=== PATIENT | female | born 1990 | race Two or more races ===

== ENCOUNTER 2020-04-19 16:52 | Emergency (ER) | payer OTHER ==
--- NOTE | 2020-04-19 17:23 | ED Physician Documentation ---
PD HPI LOWER EXT INJURY - Stated complaint Stated Complaint: R FOOT INJ - Chief complaint Chief Complaint: Trauma Ext - History obtained from History obtained from: Patient - History of Present Illness PD HPI LOW EXT INJURY LOCATION: Right, Ankle, Foot Type of injury: Fall, Twist (while hiking today) Timing - onset: How many hours ago (2) Timing - duration: Hours (2) Timing - details: Gradual onset Pain level max: 7 Pain level now: 5 Improved by: Rest, Ice, Immobilization Worsened by: Moving, Palpating Associated symptoms: Swelling. No: Weakness, Numbness, Tingling, Discolored Contributing factors: No: Anticoagulated Recently seen: Not recently seen - Additional information Additional information: twisted R foot and ankle on tree root, now with pain. Patient is not , breast-feeding or trying to become . Review of Systems Constitutional: denies: Fever : denies: Now EGA Musculoskeletal: denies: Neck pain, Back pain Neurologic: denies: Head injury PD PAST MEDICAL HISTORY - Past Medical History Past Medical History: No - Past Surgical History Past Surgical History: No - Present Medications Home Medications: Ambulatory Orders Medication Instructions Recorded Confirmed Ibuprofen [Motrin] 800 mg PO Q8H PRN #30 tablet 04/19/20 - Allergies Allergies/Adverse Reactions: Allergies Allergy/AdvReac Type Severity Reaction Status Date / Time No Known Drug Allergies Allergy Verified 04/19/20 16:59 - Living Situation Living Situation: reports: With family Living Arrangement: reports: At home - Social History Does the pt smoke?: No Smoking Status: Never smoker PD ED PE NORMAL - Vitals Vital signs reviewed: Yes - General General: Alert and oriented X 3, No acute distress - HEENT HEENT: Moist mucous membranes - Neck Neck: Supple, no meningeal sign - Derm Derm: Warm and dry - Extremities Extremities: Other (Right ankle and foot - Tender to palpation over the lateral malleolus and the base of the fifth metatarsal. Mild swelling. No ecchymosis. Neurovascular intact. Otherwise normal examination of the foot and ankle.) - Neuro Neuro: Alert and oriented X 3 Results - Vitals Vitals: Vital Signs - 24 hr 04/19/20 04/19/20 17:00 18:25 Temperature 37.3 C 37.0 C Heart Rate 81 73 Respiratory 18 18 Rate Blood Pressure 117/67 120/74 O2 Saturation 98 100 Oxygen O2 Source Room air - Rads (name of study) Right foot x-ray Radiology: Prelim report reviewed, EMP read contemporaneously, See rad report (Fracture at the base of the fifth metatarsal) Right ankle x-ray Radiology: Prelim report reviewed, EMP read contemporaneously, See rad report (Fracture at the base of the fifth metatarsal) Procedures - Splint (location) R lower extremity Splint applied by: Physician, Tech Type of splint: Fiberglass, Short leg, Posterior Other: Patient tolerated well, No complications, Neurovascular intact, Crutches provided PD MEDICAL DECISION MAKING - ED course Complexity details: reviewed results, re-evaluated patient, considered differential, d/w patient ED course: Patient with a fracture at the base of the fifth metatarsal, placed in a short leg posterior splint and given crutches. Neurovascularly intact. [place]. Patient counseled reg arding signs and symptoms for which I believe and urgent re-evaluation would be necessary. Patient with good understanding of and agreement to plan and is comfortable going home at this time This document was made in part using voice recognition software. While efforts are made to proofread this document, sound alike and grammatical errors may occur. Departure - Departure Disposition: 01 Home, Self Care Clinical Impression: Fracture of base of fifth metatarsal bone Qualifiers: Encounter type: initial encounter Fracture type: closed Laterality: right Qualified Code(s): S92.351A - Displaced fracture of fifth metatarsal bone, right foot, initial encounter for closed fracture Condition: Good Instructions: ED Fx Foot Follow-Up: Your,doctor in 1 week [Other] Prescriptions: Ibuprofen [Motrin] 800 mg PO Q8H PRN #30 tablet PRN Reason: PAIN &/OR FEVER Comments: These fractures require orthopedic follow-up to ensure proper healing. [place] 1 [place] 2 [place]. You are to be nonweightbearing until that time. Return if you worsen. Forms: Activity restrictions Discharge Date/Time: 04/19/20 18:46
[2020-04-19] MEDS ORDERED: IBUPROFEN 800 MG TABLET PO STA (17:43)
--- NOTE | 2020-04-19 17:45 | XRAY Report ---
PROCEDURE: Foot 3 View RT INDICATIONS: injury TECHNIQUE: 3 views of the foot were acquired. COMPARISON: X-ray ankle 04/19/2020 FINDINGS: Bones: There is a nondisplaced fracture at the base of the fifth metatarsal. No suspicious bony lesio ns. Soft tissues: No tibiotalar joint effusion. Achilles tendon appears normal. IMPRESSION: Nondisplaced fifth metatarsal base fracture. Reviewed by: Katherine Peña MD on 04/19/2020 5:43 PM PDT Approved by: Katherine Peña MD on 04/19/2020 5:43 PM PDT Station ID: [id number]
--- NOTE | 2020-04-19 17:45 | XRAY Report ---
PROCEDURE: Ankle 3 View RT INDICATIONS: injury TECHNIQUE: 3 views of the ankle were acquired. COMPARISON: X-ray foot 04/19/2020 FINDINGS: Bones: Nondisplaced fracture is present at the base of the fifth metatarsal. Ankle mortise is normall y aligned. No suspicious bony lesions. Soft tissues: No tibiotalar joint effusion. Achilles tendon appears normal. IMPRESSION: Fifth metatarsal base fracture. Reviewed by: Katherine Peña MD on 04/19/2020 5:43 PM PDT Approved by: Katherine Peña MD on 04/19/2020 5:43 PM PDT Station ID: [id number]
[2020-04-19 18:26] VITALS: BP 120/74
== END 2020-04-19 18:46 | disposition home or self-care (01) ==
LOC: ED 16:52
DX: S92.354A Nondisplaced fracture of fifth metatarsal bone, right foot, initial encounter for closed fracture (principal); X50.1XXA Overexertion from prolonged static or awkward postures, initial encounter; Y93.01 Activity, walking, marching and hiking
CPT/HCPCS: 29515; 73610; 73630; 99283; 99284; A9270

== ENCOUNTER 2021-12-10 18:32 | Emergency (ER) | payer OTHER ==
[2021-12-10 18:49] VITALS: BP 132/85
--- NOTE | 2021-12-10 20:45 | Ultrasound Report ---
PROCEDURE: Duplex Ext Veins Left INDICATIONS: LLE swelling TECHNIQUE: Real-time imaging, as well as color and pulse Doppler interrogation, were performed of the lower extr emity deep veins from the inguinal ligament to the popliteal fossa. COMPARISON: None. FINDINGS: There is nonocclusive clot in the left popliteal vein. There is occlusive clot in the left gastrocnemius vein. There is probable thrombus in the posterior tibial and peroneal veins. There is a complex fluid collection in the left proximal calf which measures 7.4 x 2.3 x 6 cm, and an area with bruising, consistent with hematoma. A knee joint effusion is present. IMPRESSION: 1. Left proximal calf hematoma. 2. DVT in the left popliteal vein, left gastrocnemius vein, and probably the posterior tibial vein an d peroneal vein as well. Comment: A preliminary report was given by the dean for student affairs to the referring clinician at the time of study completion. Reviewed by: Leonardo Medrano MD on 12/10/2021 8:44 PM PST Approved by: Leonardo Medrano MD on 12/10/2021 8:44 PM PST Station ID: [id number]
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
[2021-12-10] MEDS ORDERED: APIXABAN 5 MG TABLET PO STA (21:13)
[2021-12-10] MEDS ORDERED: HYDROcod/ACETAM 5/325 MG TABLET PO STA (21:13)
== END 2021-12-10 21:20 | disposition home or self-care (01) ==
LOC: ED 18:32
DX: S80.12XA Contusion of left lower leg, initial encounter (principal); I82.432 Acute embolism and thrombosis of left popliteal vein; I82.462 Acute embolism and thrombosis of left calf muscular vein; W20.8XXA Other cause of strike by thrown, projected or falling object, initial encounter; Y99.1 Military activity
CPT/HCPCS: 93971; 99284; A9270

== ENCOUNTER 2023-02-13 17:29 | Emergency (ER) | payer OTHER ==
[2023-02-13 19:15] LABS: CORONAVIRUS 229E-RESP PCR NOT DETECTED; CORONAVIRUS HKU1-RESP PCR NOT DETECTED; CORONAVIRUS NL63-RESP PCR NOT DETECTED; CORONAVIRUS OC43-RESP PCR NOT DETECTED; HUMAN METAPNEUMOVIRUS NOT DETECTED; RHINOVIRUS/ENTEROVIRUS NOT DETECTED; SARS-CoV-2 -RESP PCR PANEL NOT DETECTED
[2023-02-13 19:16] LABS: B. PARAPERTUSSIS- RESP PCR PAN NOT DETECTED; B. PERTUSSIS- RESP PCR PANEL NOT DETECTED; C. PNEUMONIAE- RESP PCR PANEL NOT DETECTED; INFLUENZA A H1 2009- RESP PCR DETECTED; INFLUENZA B - RESP PCR PANEL NOT DETECTED; M. PNEUMONIAE- RESP PCR PANEL NOT DETECTED; PARAINFLUENZA VIRUS 1 NOT DETECTED; PARAINFLUENZA VIRUS 2 NOT DETECTED; PARAINFLUENZA VIRUS 3 NOT DETECTED; PARAINFLUENZA VIRUS 4 NOT DETECTED; RSV- RESP PCR PANEL NOT DETECTED
[2023-02-13] MEDS ORDERED: IBUPROFEN 800 MG TABLET PO STA (19:29)
--- NOTE | 2023-02-13 19:31 | ED Physician Documentation ---
History of Present Illness - Stated complaint Stated Complaint: FEVER/JONES/COUGH - Chief complaint Chief Complaint: Resp - History obtained from History obtained from: Patient - History of Present Illness Timing: Yesterday Pain level max: 5 Pain level now: 5 - Additonal information Additional information: 32-year-old female with fever, cough, congestion that started yesterday. Daughter is sick with same. Generalized body aches and fatigue. No vomiting. No diarrhea. No constipation. No rash. Denies any possibility of . Review of Systems Constitutional: reports: Fever Respiratory: denies: Cough GI: denies: Nausea, Vomiting Skin: denies: Rash Musculoskeletal: denies: Neck pain, Back pain Neurologic: denies: Headache PD PAST MEDICAL HISTORY - Past Medical History Past Medical History: No - Past Surgical History Past Surgical History: No - Present Medications Home Medications: Ambulatory Orders Medication Instructions Recorded Confirmed Oseltamivir [Tamiflu] 75 mg PO BID #10 cap 02/13/23 - Allergies Allergies/Adverse Reactions: Allergies Allergy/AdvReac Type Severity Reaction Status Date / Time No Known Drug Allergies Allergy Verified 02/13/23 18:13 - Living Situation Living Situation: reports: With family Living Arrangement: reports: At home - Social History Does the pt smoke?: No Smoking Status: Never smoker - Family History Family history: reports: Non contributory PD ED PE NORMAL - Vitals Vital signs reviewed: Yes - General General: Alert and oriented X 3, No acute distress, Well developed/nourished - HEENT HEENT: PERRL, Ears normal, Moist mucous membranes, Pharynx benign - Neck Neck: Supple, no meningeal sign - Cardiac Cardiac: RRR, Strong equal pulses - Respiratory Respiratory: No respiratory distress, Clear bilaterally - Abdomen Abdomen: Soft, Non tender, Non distended - Derm Derm: Warm and dry, No rash - Neuro Neuro: Alert and oriented X 3 - Psych Psych: Normal mood, Normal affect Results - Vitals Vitals: Vital Signs - 24 hr 02/13/23 02/13/23 18:11 19:43 Temperature 38.9 C H Heart Rate 106 H 65 Respiratory 16 18 Rate Blood Pressure 126/70 118/72 O2 Saturation 100 94 Oxygen O2 Source Room air - Labs Labs: Laboratory Tests 02/13/23 18:15 Nasal Adenovirus (PCR) NOT DETECTED Nasal B. parapertussis DNA (PCR) NOT DETECTED Nasal Coronavir 229E PCR NOT DETECTED Nasal Coronavir HKU1 PCR NOT DETECTED Nasal Coronavir NL63 PCR NOT DETECTED Nasal Coronavir OC43 PCR NOT DETECTED Nasal Enterovir/Rhinovir PCR NOT DETECTED Nasal Influ A H1 2009 PCR DETECTED A Nasal Influenza B PCR NOT DETECTED Nasal Parainfluen 1 PCR NOT DETECTED Nasal Parainfluen 2 PCR NOT DETECTED Nasal Parainfluen 3 PCR NOT DETECTED Nasal Parainfluen 4 PCR NOT DETECTED Nasal RSV (PCR) NOT DETECTED Nasal B.pertussis DNA PCR NOT DETECTED Nasal C.pneumoniae (PCR) NOT DETECTED Krunal Human Metapneumo PCR NOT DETECTED Nasal M.pneumoniae (PCR) NOT DETECTED Nasal SARS-CoV-2 (PCR) NOT DETECTED PD Medical Decision Making - ED course Complexity details: reviewed results, re-evaluated patient, considered differential, d/w patient ED course: Patient is positive for influenza A. We will prescribe Tamiflu. Patient is well-appearing, nontoxic. Has a fever here. We will continue supportive care and have her follow-up with her PCP. Patient counseled regarding signs and symptoms for which I believe and urgent re-evaluation would be necessary. Pat ient with good understanding of and agreement to plan and is comfortable going home at this time This document was made in part using voice recognition software. While efforts are made to proofread this document, sound alike and grammatical errors may occur. Departure - Departure Disposition: 01 Home, Self Care Clinical Impression: Influenza A Condition: Good Instructions: ED Flu Follow-Up: your,doctor in 1 week [Other] - Within 1 week Prescriptions: Oseltamivir [Tamiflu] 75 mg PO BID #10 cap Comments: Your prescriptions were sent to [facility] in [place]. Please start the Tamiflu tomorrow. You have tested positive for influenza A today. Drink plenty of fluids and rest. Return if you worsen. Forms: Activity restrictions Discharge Date/Time: 02/13/23 19:43
[2023-02-13 19:44] VITALS: BP 118/72
== END 2023-02-13 19:43 | disposition home or self-care (01) ==
LOC: ED 17:29
DX: J10.1 Influenza due to other identified influenza virus with other respiratory manifestations (principal); Z20.822 Contact with and (suspected) exposure to COVID-19
CPT/HCPCS: 87633; 99283; A9270

== ENCOUNTER 2024-02-12 15:10 | Emergency (ER) | payer OTHER ==
--- NOTE | 2024-02-12 15:40 | ED Physician Documentation ---
PD HPI BACK PAIN - Stated complaint Stated Complaint: BACK PX - Chief complaint Chief Complaint: Back Pain - Additional information Additional information: 33-year-old female with abrupt onset of left low back pain. [place] of pain. No radiation to the legs no loss of bowel or bladder. No weakness. She is quite uncomfortable. No urinary symptoms. Review of Systems : denies: Dysuria, Frequency Neurologic: denies: Focal weakness PD PAST MEDICAL HISTORY - Past Medical History Past Medical History: No - Past Surgical History Past Surgical History: Yes General: Cholecystectomy /[employer]: section - Present Medications Home Medications: Ambulatory Orders Medication Instructions Recorded Confirmed Cyclobenzaprine [Flexeril] 10 mg PO TID PRN #20 tablet 02/12/24 Ibuprofen [Motrin] 600 mg PO Q6H PRN #30 tab 02/12/24 Oxycodone HCl/Acetaminophen 1 - 2 each PO Q6H PRN #14 tablet 02/12/24 [Percocet 5-325 mg Tablet] - Allergies Allergies/Adverse Reactions: Allergies Allergy/AdvReac Type Severity Reaction Status Date / Time No Known Drug Allergies Allergy Verified 02/12/24 15:15 - Social History Does the pt smoke?: No Smoking Status: Never smoker Does the pt drink ETOH?: No Does the pt have substance abuse?: No - Immunizations Immunizations are current?: Yes - POLST Patient has POLST: No PD ED PE NORMAL - Vitals Vital signs reviewed: Yes - General General: Alert and oriented X 3, Well developed/nourished - Neck Neck: Supple, no meningeal sign - Back Back: No CVA TTP, No spinal TTP, Other ( left-sided paraspinal lumbar muscle tenderness.) - Extremities Extremities: No deformity - Neuro Neuro: No motor deficit, No sensory deficit, Other (Walks on toes and heels DTRs normal) Results - Vitals Vitals: Vital Signs - 24 hr 02/12/24 15:15 Temperature 36.5 C Heart Rate 63 Respiratory 16 Rate Blood Pressure 120/73 O2 Saturation 100 Oxygen O2 Source Room air PD Medical Decision Making - ED course ED course: Young female presenting with Mechanical low back pain neurologically intact. No indication for advanced imaging. Gave her Toradol and Vicodin here will send her home with ibuprofen, Flexeril and Percocet. Follow-up with PCP. Departure - Departure Clinical Impression: Lumbar strain Condition: Good Instructions: ED Spasm Back No Trauma Prescriptions: Cyclobenzaprine [Flexeril] 10 mg PO TID PRN #20 tablet PRN Reason: Spasms Ibuprofen [Motrin] 600 mg PO Q6H PRN #30 tab PRN Reason: Pain Oxycodone HCl/Acetaminophen [Percocet 5-325 mg Tablet] 1 - 2 each PO Q6H PRN #14 tablet PRN Reason: pain
[2024-02-12] MEDS: KETOROLAC 60 MG/2 ML VIAL IM STA (15:44)
[2024-02-12] MEDS: HYDROcod/ACETAM 5/325 MG TABLET PO STA (15:45)
[2024-02-12 16:31] VITALS: BP 119/78; O2SAT 98
== END 2024-02-12 16:30 | disposition home or self-care (01) ==
LOC: ED 15:10
DX: S39.012A Strain of muscle, fascia and tendon of lower back, initial encounter (principal); X50.9XXA Other and unspecified overexertion or strenuous movements or postures, initial encounter; Y93.89 Activity, other specified; Y92.814 Boat as the place of occurrence of the external cause
CPT/HCPCS: 96372; 99283; A9270